=== PATIENT | female | born 1995 | race African-American/Black ===

== ENCOUNTER 2019-09-23 21:02 | Emergency (ER) | payer MEDICARE ==
[~2019-09-23] VITALS: Ht 160 cm; Wt 90.7 kg
--- NOTE | 2019-09-23 21:30 | NUR ---
PT BIB PA WITH A C/O N/V. PT WAS EN ROUTE TO [facility]. PT C/O N/V WITH ABD AND CHEST PAIN UPON ARRIVAL TO [facility]. PT WAS SLIGHTLY TACHY AT THAT TIME. PT WAS TAKEN TO THE ER. PT IS AA&O X3. PT WAS DRY HEAVING WHILE BEING TRIAGED. PT WENT TO ER 14 AND WAS PLACED ON THE MONITOR AND POX. BIOLOGIST AIDE IS AT THE BEDSIDE FOR BLOOD DRAW.
[2019-09-23] MEDS ORDERED: ONDANSETRON HCL/PF 4 MG/2 ML VIAL ONE (21:48)
[2019-09-23] MEDS ORDERED: IV NS 0.9% 1,000 ML BAG IV ONE (22:00)
[2019-09-23] MEDS ORDERED: ONDANSETRON HCL/PF 4 MG/2 ML VIAL IVP ONE (22:00)
[2019-09-23 22:25] LABS: BASOPHILS # (AUTO) 0.1 /CMM (0.0-0.2); BASOPHILS % (AUTO) 0.8 % (0.0-2.0); EOSINOPHILS % (AUTO) 3.2 % (0.0-6.0); HEMATOCRIT 43 % (33-45); HEMOGLOBIN 14.1 g/dL (11.5-14.8); LYMPHOCYTES # (AUTO) 2.2 /CMM (0.8-4.8); LYMPHOCYTES % (AUTO) 20.1 % (20.0-44.0); MEAN CORPUSCULAR HGB CONC 33 g/dl (31.0-36.0); MEAN CORPUSCULAR VOLUME 88 fL (82-100); MONOCYTES # (AUTO) 0.9 /CMM (0.1-1.30); MONOCYTES % (AUTO) 8.7 % (2.0-12.0); NEUTROPHILS # (AUTO) 7.2 /CMM (1.8-8.9); NEUTROPHILS % (AUTO) 67.2 % (43.0-81.0); PLATELET COUNT (AUTO) 407 /CMM (150-450); RED BLOOD CELL COUNT(AUTO) 4.89 MIL/uL (4.0-5.2); WHITE BLOOD COUNT (AUTO) 10.8 K/uL (4.3-11.0)
--- NOTE | 2019-09-23 22:28 | NUR ---
20G IV STARTED IN RAC. BLOOD WAS DRAWN AND SENT TO LAB. IV INFILTRATED. IV removed. Catheter intact and site benign. Pressure and 4x4 applied to site. No bleeding noted.
[2019-09-23] MEDS ORDERED: MORPHINE SULFATE INJ 2 MG/ML DISP.SYRIN IV ONE (22:30)
[2019-09-23] MEDS ORDERED: FAMOTIDINE/PF INJ 20 MG/2 ML VIAL IV ONE ×2 (22:30→23:33)
--- NOTE | 2019-09-23 22:31 | NUR ---
MARIUM WARD AT THE BEDSIDE FOR IV INSERTION.
--- NOTE | 2019-09-23 23:10 | NUR ---
DR LEONARD TO USE US TO START THE IV. US IS AT THE BEDSIDE.
[2019-09-23] MEDS ORDERED: MORPHINE SULFATE INJ 4 MG/ML DISP.SYRIN ONE (23:33)
--- NOTE | 2019-09-23 23:44 | NUR ---
PT REC'D MEDICATION ORDERED. PT IS ON THE MONITOR AND POX.
[2019-09-24] MEDS ORDERED: IV NS 0.9% 500 ML BAG IV ONE (01:00)
[2019-09-24] MEDS ORDERED: MORPHINE SULFATE INJ 4 MG/ML DISP.SYRIN ONE (01:47)
[2019-09-24] MEDS ORDERED: LORAZEPAM INJ 2 MG/ML VIAL ONE (01:48)
[2019-09-24] MEDS ORDERED: LORAZEPAM INJ 2 MG/ML VIAL IV ONE (02:00)
[2019-09-24] MEDS ORDERED: MORPHINE SULFATE INJ 2 MG/ML DISP.SYRIN IV ONE (02:00)
[2019-09-24 03:20] LABS: ALANINE AMINOTRANSFERASE 58 U/L (12-78); ALBUMIN 4.4 g/dL (3.4-5.0); ALCOHOL, BLOOD < 3 mg/dL (0-0); ALKALINE PHOSPHATASE 41 U/L (46-116); ASPARTATE AMINOTRANSFERASE 43 U/L (15-37); BILIRUBIN,DIRECT 0.2 mg/dL (0.0-0.2); BILIRUBIN,TOTAL 0.6 mg/dL (0.2-1.0); CARBON DIOXIDE 24 mmol/L (21-32); CHLORIDE 101 mmol/L (98-107); CREATININE 0.7 mg/dL (0.6-1.3); GLUCOSE 115 mg/dL (74-106); LIPASE 109 U/L (73-393); POTASSIUM 3.1 mmol/L (3.5-5.1); SODIUM SERUM 140 mmol/L (136-145); TOTAL PROTEIN, SERUM 8.4 g/dL (6.4-8.2); UREA NITROGEN, BLOOD 18 mg/dL (7-18)
[2019-09-24 03:29] LABS: ACETAMINOPHEN 0 ug/ml (10-30); SALICYLATE 0.9 mg/dL (2.8-20.0)
[2019-09-24] MEDS ORDERED: POTASSIUM CHLORIDE 20 MEQ TAB.PRT.SR PO ONE ×2 (03:33→04:00)
--- NOTE | 2019-09-24 04:41 | NUR ---
URINE COLLECTED AND SENT TO THE LAB.
[2019-09-24 05:08] LABS: APPEARANCE,URINE CLEAR (CLEAR); BILIRUBIN,URINE NEGATIVE (NEGATIVE); BLOOD, URINE NEGATIVE Ery/uL (NEGATIVE); COLOR,URINE YELLOW (YELLOW); KETONES,URINE NEGATIVE (NEGATIVE); LEUKOCYTE ESTERASE ,URINE NEGATIVE (NEGATIVE); NITRITE, URINE NEGATIVE (NEGATIVE); PROTEIN,URINE NEGATIVE (NEGATIVE); UGLUCOSE NEGATIVE (NEGATIVE); UROBILINOGEN,URINE 0.2 EU/dL (0.2)
--- NOTE | 2019-09-24 05:45 | NUR ---
Per [facility] intake, requesting potassium to be within normal limits.
--- NOTE | 2019-09-24 06:06 | NUR ---
PATIENT IS SLEEPING. EASILY AROUSED THROUGH TACTILE AND VERBAL STIMULI. BREATHING EVENLY AND UNLABORED ON ROOM AIR. CONNECTED TO THE MONITOR. SITTER IS AT BEDSIDE.
--- NOTE | 2019-09-24 07:19 | NUR ---
REPORT GIVEN TO ANSHU CAUSEY FOR [facility].
--- NOTE | 2019-09-24 07:43 | NUR ---
[facility], called they will accept patient when medically cleared and clinicals can be faxed to [phone]
--- NOTE | 2019-09-24 08:51 | NUR ---
REPORT GIVEN TO JOSÉ CAUSEY [facility].
--- NOTE | 2019-09-24 09:14 | NUR ---
IV removed. Catheter intact and site benign. Pressure and 4x4 applied to site. No bleeding noted.
--- NOTE | 2019-09-24 09:19 | NUR ---
Patient picked up by [facility] in stable condition. Patient will be brought to [facility]. Clinicals indicating patient is medically cleared given to EMT.
[2019-09-24 09:22] VITALS: BP 100/68
== END 2019-09-24 09:32 ==
LOC: ER 21:04
DX: R11.2 Nausea with vomiting, unspecified (principal); F32.9 Major depressive disorder, single episode, unspecified; F20.9 Schizophrenia, unspecified; Z59.0 Homelessness
CPT/HCPCS: 36415; 80048; 80076; 80305; 80307; 80329; 81001; 83690; 84703; 85025; 96361; 96374; 96375 ×2; 96376; 99285; G0480; J2060; J2270 ×2; J2405; J3490; J7030 ×2; 81000-TC